=== PATIENT | male | born 1990 | race Caucasian/White ===

== ENCOUNTER 2019-03-02 02:31 | Emergency (ER) | payer SELFPAY ==
[~2019-03-02] VITALS: Ht 167.6 cm; Wt 95.3 kg
--- NOTE | 2019-03-02 02:37 | NUR ---
PT AMBULATED TO BED 07.
[2019-03-02 02:42] VITALS: BP 124/81
--- NOTE | 2019-03-02 02:46 | NUR ---
PT BIB FRIEND W/ HEAD LACERATION ON BACK OF HEAD. PT STATES HE WAS AT A [employer], SLIPPED AND HIT HEAD ON FLOOR. DENIES LOC. DENIES HEADACHE & DIZZINESS, DENIES N/V. RR EVEN AND UNLABORED. PERRL. PT FRIEND AT BEDSIDE. VSS MEDHX: DENIES ALLERGIES: DENIES
--- NOTE | 2019-03-02 02:47 | NUR ---
DR SHORT AT BEDSIDE
[2019-03-02 03:07] VITALS: BP 124/81
--- NOTE | 2019-03-02 03:07 | NUR ---
Patient discharged with v/s stable. Written and verbal after care instructions given and explained. Patient verbalized understanding. Ambulatory with to home. All questions addressed prior to discharge. Advised to follow up with PMD.
== END 2019-03-02 03:07 | disposition home or self-care (01) ==
LOC: MED 02:31
DX: S01.01XA Laceration without foreign body of scalp, initial encounter (principal); W19.XXXA Unspecified fall, initial encounter; Y93.89 Activity, other specified; Y92.89 Other specified places as the place of occurrence of the external cause; Y99.8 Other external cause status
CPT/HCPCS: 99283